=== PATIENT | female | born 1930 ===

== ENCOUNTER 2020-01-02 06:07 | Day surgery (SDC) | payer OTHER ==
[2020-01-02 06:36] VITALS: BMI 26.7
[2020-01-02] MEDS ORDERED: LIDOCAINE HCL 1%, 10 MG/ML (20ML VIAL) ONE ×2 (07:13→08:37)
[2020-01-02] MEDS ORDERED: PROPOFOL 20 ML ONE (07:23)
[2020-01-02] MEDS ORDERED: ceFAZolin SODIUM 1 GM VIAL ONE (07:23)
[2020-01-02] MEDS ORDERED: EPHEDRINE SULFATE/0.9% NACL/PF 50 MG/10 ML SYRINGE NR ONE (07:24)
[2020-01-02] MEDS ORDERED: SODIUM CHLORIDE 0.9% P/F 10 ML VIAL IJ ONE (07:26)
[2020-01-02] MEDS ORDERED: MIDAZOLAM HCL 2 MG/2 ML SINGLE DOSE VIAL ONE (07:27)
[2020-01-02] MEDS ORDERED: HEPARIN NA (PORCINE) 5,000 UNITS/ML 1ML VIAL ONE ×2 (07:34→07:49)
[2020-01-02] MEDS ORDERED: ONDANSETRON 4 MG/2 ML VIAL IVPUSH PRN (08:00)
[2020-01-02] MEDS ORDERED: oxyCODONE HCL 5 MG TABLET PO PRN (08:00)
[2020-01-02] MEDS ORDERED: LACTATED RINGERS SOLUTION 1,000 ML IV SCH (08:00)
--- NOTE | 2020-01-02 08:06 | HP ---
Admitting History and Physical - Admission Chief Complaint: Pt needs portacath placement for intiation of chemotherapy for ovarian CA Limitations to Obtaining History: No Limitations - Smoking History Smoking history: Never smoked Have you smoked in the past 12 months: No - Alcohol/Substance Use Hx Alcohol Use: No Home Medications - Allergies Allergies/Adverse Reactions: Allergies Allergy/AdvReac Type Severity Reaction Status Date / Time pravastatin AdvReac Intermediate Verified 01/02/20 06:28 - Home Medications Home Medications: Ambulatory Orders Latanoprost/Pf [Latanoprost 0.005% Eye Drop] 1 drop OU HS 01/02/20 Levothyroxine [Synthroid -] 50 mcg PO DAILY 01/02/20 Lisinopril 20 mg PO DAILY 01/02/20 Multivitamin [Multiple Vitamins] 1 each PO DAILY 01/02/20 Omeprazole 40 mg PO DAILY 01/02/20 Vitamin B Complex 1 each PO DAILY 01/02/20 Review of Systems - Review of Systems Constitutional: reports: No Symptoms Eyes: reports: No Symptoms HENT: reports: No Symptoms Neck: reports: No Symptoms Cardiovascular: reports: No Symptoms Respiratory: reports: No Symptoms Gastrointestinal: reports: No Symptoms Genitourinary: reports: No Symptoms Musculoskeletal: reports: No Symptoms Integumentary: reports: No Symptoms Neurological: reports: No Symptoms Endocrine: reports: No Symptoms Hematology/Lymphatic: reports: No Symptoms Psychiatric: reports: No Symptoms Physical Examination Vital Signs: Vital Signs Temperature 98.1 F 01/02/20 07:18 Pulse Rate 65 01/02/20 07:18 Respiratory Rate 18 01/02/20 07:18 Blood Pressure 131/56 L 01/02/20 07:18 O2 Sat by Pulse Oximetry (%) 97 01/02/20 06:54 Constitutional: Yes: Well Nourished, No Distress, Calm Eyes: Yes: WNL, Conjunctiva Clear, EOM Intact HENT: Yes: WNL, Atraumatic, Normocephalic Neck: Yes: WNL, Supple, Trachea Midline Cardiovascular: Yes: WNL, Regular Rate and Rhythm Respiratory: Yes: WNL, Regular, CTA Bilaterally Gastrointestinal: Yes: WNL, Normal Bowel Sounds Musculoskeletal: Yes: WNL Extremities: Yes: WNL Edema: No Peripheral Pulses WNL: Yes Integumentary: Yes: WNL Neurological: Yes: WNL, Alert, Oriented ...Motor Strength: WNL Psychiatric: Yes: WNL Problem List - Problems (1) Ovarian cancer Assessment/Plan: For portacath placement today Code(s): C56.9 - MALIGNANT NEOPLASM OF UNSPECIFIED OVARY
[2020-01-02] MEDS ORDERED: ceFAZolin SODIUM 1 GM VIAL IVPB ONE (08:20)
[2020-01-02] MEDS ORDERED: LIDOCAINE HCL 1%, 10 MG/ML (20ML VIAL) INF ONE ×2 (08:30)
[2020-01-02] MEDS ORDERED: HEPARIN NA (PORCINE) 1,000 UNITS/ML 10ML M-D VIAL SQ ONE (08:38)
[2020-01-02] MEDS ORDERED: HEPARIN NA (PORCINE) 5,000 UNITS/ML 1ML VIAL SQ ONE (08:39)
--- NOTE | 2020-01-02 09:28 | OP ---
Operative Note - Note: Operative Date: 01/02/20 Pre-Operative Diagnosis: Ovarian Cancer Operation: Insertion of portacath Post-Operative Diagnosis: Same as Pre-op Surgeon: Yunior Holland Anesthesia: Fractional Estimated Blood Loss (mls): 40 Operative Report Dictated: Yes
--- NOTE | 2020-01-02 09:57 | OP ---
DATE OF OPERATION: 01/02/2020 PREOPERATIVE DIAGNOSIS: Ovarian cancer. POSTOPERATIVE DIAGNOSIS: Ovarian cancer. PROCEDURE: Insertion of Port-A-Cath. SURGEON: Yunior Meneses DO ANESTHESIA: Fractional. BLOOD LOSS: 40 mL. The patient is an 89-year-old female diagnosed with ovarian cancer by her oncologist. The oncology service sent her over for a Port-A-Cath insertion for initiation of chemotherapy. Patient was consented for the procedure, understanding all risks, benefits, and alternatives, and was then taken to the operating room. Once in the operating room, was laid on the operating table in supine manner, and the area of the right neck and chest were prepped and draped in a sterile surgical manner. Under ultrasound guidance, we the right internal jugular vein and 10 mL of lidocaine 1% was injected there. We then took our Micropuncture needle, punctured the right internal jugular vein. Micropuncture wire was inserted and Micropuncture sheath was inserted. We then went below the clavicle onto the chest wall, and 15 mL of lidocaine 1% was injected there. We then went ahead and made a 4-cm incision using a 15-blade. Bovie electrocautery used to control all hemostasis. We then created a pocket for our Port-A-Cath. We then took an 11-blade and made a 1-cm incision at the puncture site. We then went ahead and tunneled our Port-A-Cath up to the puncture site and we cut the catheter to size. We then placed our breakaway sheath over the guidewire into the vein under fluoroscopy. Inner cannula and guidewire were removed. Catheter was placed inside the sheath. Sheath was broken away as the catheter was placed up the vein. Neck of the catheter was nice and smooth. Tip of the catheter was located in the SVC. At this time we took our Bsos needle and we had good blood draw back. Heparinized saline was injected, 2000 units of IV heparin was injected into the port. We then went ahead and used 3-0 silk and the Port-A-Cath was secured to the subcutaneous tissue. We then went ahead and used 3-0 Vicryl, and the subcutaneous tissue was approximated in interrupted manner. We then used 4-0 Biosyn and the skin was closed in a subcuticular running fashion. Area was wet and dried. Dermabond, Steri-Strips were placed. The puncture site was closed with one 4-0 Biosyn stitch and Steri-Strip was placed. Next, 4 x 4 and Tegaderms were placed. Patient tolerated the procedure with no complications. Patient transferred to PACU in stable condition where a chest x-ray will be ordered. YUNIOR MENESES DO NP/[id number]
[2020-01-02 11:50] VITALS: BP 120/78; PULSE 70; TEMP 97.8
== END 2020-01-02 11:45 | disposition home or self-care (01) ==
LOC: JASU-SURG 06:07
PROVIDERS: ATTEND Surgery Vascular Surgery
PROC: B513YZA Fluoroscopy of Right Jugular Veins using Other Contrast, Guidance (ICD-10-PCS; 2020-01-02)
PROC: 05HM33Z Insertion of Infusion Device into Right Internal Jugular Vein, Percutaneous Approach (ICD-10-PCS; principal; 2020-01-02 08:00)
DX: C56.9 Malignant neoplasm of unspecified ovary (principal)
CPT/HCPCS: 36561; 77001; C1788; 71045-TC-FY; 76000-TC-FY; 94760; J1644